=== PATIENT | female | born 1990 | race African-American/Black ===

== ENCOUNTER 2018-09-19 17:29 | Emergency (ER) | payer OTHER ==
[~2018-09-19] VITALS: Ht 157.5 cm; Wt 55.3 kg
[~2018-09-19 17:29] MED LIST: AMOX1TAB61 PO; AMOX500C PO; PRED20TA PO; PROAIR HFA8.5 GM INH
[2018-09-19 17:53] LABS: BILIRUBIN,URINE NEGATIVE (NEG); CLARITY,URINE CLEAR; COLOR,URINE YELLOW; NITRITE,URINE NEGATIVE (NEG); PROTEIN,URINE NEGATIVE (NEG-TRACE)
[2018-09-19] MEDS: ACETAMINOPHEN 500 MG TABLET PO ONE (18:00)
[2018-09-19 18:03] LABS: BACTERIA,URINE FEW /HPF (0-FEW); RBC,URINE RARE /HPF (0-2); SQUAMOUS EPITHELIAL CELL,UR FEW /LPF; WBC,URINE RARE /HPF (0-4)
--- NOTE | 2018-09-19 18:22 | PHYS DOC ---
Past Medical History Past Medical History: No Pertinent History Additional Past Medical Histor: seasonal allergies Past Surgical History: No Surgical History Alcohol Use: Occasionally Drug Use: None Adult General Chief Complaint Chief Complaint: ABDOMINAL PAIN IN [facility] HPI Patient is a 28 year old female who presents with 13 weeks last anicteric started having sharp left-sided abdominal pain. She denies dysuria. She did have a bowel movement this morning states that was small and hard. Patient states she has no vaginal bleeding or abnormal discharge. She has nausea but no vomiting. Patient states she also has slight headache. Patient states she doesn't take any medications except vitamins and she started to take anything that she is . Patient states that nothing relieves the pain. She is no known drug allergies and only takes vitamins. She has 2 other children delivered vaginal and but no common patients. Review of Systems Review of Systems Constitutional: Denies fever or chills [] Eyes: Denies change in visual acuity, redness, or eye pain [] HENT: Denies nasal congestion or sore throat [] Respiratory: Denies cough or shortness of breath [] Cardiovascular: No additional information not addressed in HPI [] GI: Left upper, lower and mid lower abdominal pain, nausea. Constipation. Denies vomiting, bloody stools or diarrhea [] : Denies dysuria or hematuria [] Musculoskeletal: Denies back pain or joint pain [] Integument: Denies rash or skin lesions [] Neurologic: Headache, focal weakness or sensory changes [] All other systems were reviewed and found to be within normal limits, except as documented in this note. Current Medications Current Medications Current Medications Medications (Trade) Dose Ordered Sig/[facility] Start Time Stop Time Status Last Admin Dose Admin Acetaminophen (Tylenol) 500 mg 1X ONCE 09/19/18 18:00 09/19/18 18:02 DC 09/19/18 18:00 500 MG Allergies Allergies Allergies Coded Allergies Type Severity Reaction Last Updated Verified No Known Drug Allergies 07/12/16 No Physical Exam Physical Exam Constitutional: Well developed, well nourished, no acute distress, non-toxic appearance. [] HENT: Normocephalic, atraumatic, bilateral external ears normal, oropharynx moist, no oral exudates, nose normal. [] Eyes: PERRLA, EOMI, conjunctiva normal, no discharge. [] Neck: Normal range of motion, no tenderness, supple, no stridor. [] Cardiovascular:Heart rate regular rhythm, no murmur [] Lungs & Thorax: Bilateral breath sounds clear to auscultation [] Abdomen: Bowel sounds normal, soft, Left upper, lower, and mid lower tenderness , no masses, no pulsatile masses. [] Skin: Warm, dry, no erythema, no rash. [] Back: No tenderness, no CVA tenderness. [] Extremities: No tenderness, no cyanosis, no clubbing, ROM intact, no edema. [] Neurologic: Alert and oriented X 3, normal motor function, normal sensory function, no focal deficits noted. [] Psychologic: Affect normal, judgement normal, mood normal. [] Current Patient Data Vital Signs Vital Signs Date Time Temp Pulse Resp B/P (MAP) Pulse Ox O2 Delivery O2 Flow Rate FiO2 09/19/18 18:43 70 18 103/58 (73) 100 09/19/18 17:45 98.5 Room Air 98.5 Lab Values Laboratory Tests Test 09/19/18 17:45 09/19/18 18:20 Urine Collection Type Unknown Urine Color Yellow Urine Clarity Clear Urine pH 7.0 Urine Specific [place] 1.020 Urine Protein Negative mg/dL (NEG-TRACE) Urine Glucose (UA) Negative mg/dL (NEG) Urine Ketones (Stick) Negative mg/dL (NEG) Urine Blood Small (NEG) Urine Nitrite Negative (NEG) Urine Bilirubin Negative (NEG) Urine Urobilinogen Dipstick 1.0 mg/dL (0.2 mg/dL) Urine Leukocyte Esterase Negative (NEG) Urine RBC Rare /HPF (0-2) Urine WBC Rare /HPF (0-4) Urine Squamous Epithelial Cells Few /LPF Urine Bacteria Few /HPF (0-FEW) Urine Mucus Mod /LPF POC Urine HCG, Qualitative Hcg positive (Negative) White Blood Count 7.9 x10^3/uL (4.0-11.0) Red Blood Count 3.56 x10^6/uL (3.50-5.40) Hemoglobin 11.6 g/dL (12.0-15.5) L Hematocrit 33.3 % (36.0-47.0) L Mean Corpuscular Volume 93 fL (79-100) Mean Corpuscular Hemoglobin 33 pg (25-35) Mean Corpuscular Hemoglobin Concent 35 g/dL (31-37) Red Cell Distribution Width 13.6 % (11.5-14.5) Platelet Count 235 x10^3/uL (140-400) Neutrophils (%) (Auto) 68 % (31-73) Lymphocytes (%) (Auto) 22 % (24-48) L Monocytes (%) (Auto) 8 % (0-9) Eosinophils (%) (Auto) 2 % (0-3) Basophils (%) (Auto) 0 % (0-3) Neutrophils # (Auto) 5.4 x10^3uL (1.8-7.7) Lymphocytes # (Auto) 1.8 x10^3/uL (1.0-4.8) Monocytes # (Auto) 0.6 x10^3/uL (0.0-1.1) Eosinophils # (Auto) 0.1 x10^3/uL (0.0-0.7) Basophils # (Auto) 0.0 x10^3/uL (0.0-0.2) Maternal Serum HCG Beta Subunit 24055 mIU/mL (0-5) H Sodium Level 136 mmol/L (136-145) Potassium Level 3.7 mmol/L (3.5-5.1) Chloride Level 100 mmol/L (98-107) Carbon Dioxide Level 28 mmol/L (21-32) Anion Gap 8 (6-14) Blood Urea Nitrogen 7 mg/dL (7-20) Creatinine 0.7 mg/dL (0.6-1.0) Estimated GFR (Cockcroft-Gault) 118.9 Glucose Level 110 mg/dL (70-99) H Calcium Level 9.7 mg/dL (8.5-10.1) Lipase 114 U/L (73-393) Laboratory Tests 09/19/18 18:20 Laboratory Tests 09/19/18 18:20 EKG EKG [] Radiology/Procedures Radiology/Procedures OB US Impressions: [address] [place] [address] IMAGING REPORT Signed PATIENT: CARTER KHAN ACCOUNT: [id number] : 1990 LOCATION: ER AGE: 28 SEX: F EXAM STATUS: REG ER ORD. PHYSICIAN: BRIDGET FLOWERS APRN REASON: LOWER ABDOMINAL PAIN PROCEDURE: PREG 1ST TRIMESTER Exam performed: OB sonogram second trimester. Indication: Patient car broke down and she had to push it today, complaining of pelvic pain since then. Date of Service: 09/19/2018 Comparison: None available. Technique: Transabdominal . Findings: Single intrauterine fetus is seen in cephalic presentation. The maturity is as follows. BPD 2.37 cm 14 weeks and 0 days Head circumference 9.25 cm 14 weeks and 1 day Abdominal circumference 8.26 cm 14 weeks and 4 days Femur length 1.29 cm 13 weeks and 6 days HC to AC ratio is 1.12 Estimated weight could not be calculated. The composite maturity is 14 weeks and 1 days with a sonographic EDC of 03/19/2019 There is adequate amniotic fluid volume . heart rate measures 155 beats per minute. Normal movement and cardiac activity seen. anatomy cannot be evaluated due to early gestation Placenta is anterior. Impression: Single live intrauterine fetus in cephalic presentation of maturity 14 weeks and 1 day. Electronically signed by: Collette Fernandez MD (09/19/2018 7:35 PM) [employer] DICTATED and SIGNED BY: COLLETTE FERNANDEZ MD DATE: 09/19/181928 Course & Med Decision Making Course & Med Decision Making Patient is a 28 year old female who presents with 13 weeks last anicteric started having sharp left-sided abdominal pain. She denies dysuria. She did have a bowel movement this morning states that was small and hard. Patient states she has no vaginal bleeding or abnormal discharge. She has nausea but no vomiting. Patient states she also has slight headache. Patient states she doesn't take any medications except vitamins and she started to take anything that she is . Patient states that nothing relieves the pain. She is no known drug allergies and only takes vitamins. She has 2 other children delivered vaginal and but no common patients. Alert and oriented. Skin is pink warm and dry. Patient rates the pain about 7 out of 10. Patient states that she will take some Tylenol here in the ED for pain. Abdomen is tender in the left lower and mid lower quadrant but she also states that there is some tenderness into her left upper quadrant. Patient states her next OB appointment is in [address] Vasquez. Patient has no extremity swelling. Vital signs are within normal limits. Neurologically intact. Patient's blood work is unremarkable. OB US show Single live intrauterine fetus in cephalic presentation of maturity 14 weeks and 1 day and a heart rate of 155. Her urinalysis slight infection with wbc's, rbc's and leukocytes. Patient will be treated with Macrobid for a UTI. Patient will be discharged home with a UTI and a prescription for Macrobid and Colace for constipation. Patient should follow up with her OB doctor soon as possible and is stable and in no distress. Dragon Disclaimer Dragon Disclaimer This electronic medical record was generated, in whole or in part, using a voice recognition dictation system. Departure Departure Impression: Primary Impression: Urinary tract infection Disposition: 01 HOME, SELF-CARE Condition: STABLE Referrals: NO PCP (PCP) Patient Instructions: - Urinary Tract Infection Additional Instructions: Follow up with your OB doctor as soon as possible. Take medications as prescribed. Scripts Docusate Sodium (COLACE) 100 Mg Capsule 1 CAP PO DAILY, #30 CAP Prov: BRIDGET FLOWERS APRN 09/19/18 Nitrofurantoin Monohyd/M-Cryst (MACROBID 100 MG CAPSULE) 100 Mg Capsule 1 CAP PO BID, #14 CAP Prov: BRIDGET FLOWERS APRN 09/19/18 Problem Qualifiers Primary Impression: Urinary tract infection Urinary tract infection type: site unspecified Hematuria presence: with hematuria Qualified Codes: N39.0 - Urinary tract infection, site not specified ; R31.9 - Hematuria, unspecified BRIDGET FLOWERS APRN Sep 19, 2018 18:21
[2018-09-19 18:32] LABS: BASO % 0 % (0-3); EOS # 0.1 x10^3/uL (0.0-0.7); EOS % 2 % (0-3); HEMATOCRIT 33.3 % (36.0-47.0); HEMOGLOBIN 11.6 g/dL (12.0-15.5); LYMPH # 1.8 x10^3/uL (1.0-4.8); LYMPH % 22 % (24-48); MEAN CORPUSCULAR HEMOGLOBIN 33 pg (25-35); MEAN CORPUSCULAR HGB CONC 35 g/dL (31-37); MEAN CORPUSCULAR VOLUME 93 fL (79-100); MONO # 0.6 x10^3/uL (0.0-1.1); MONO % 8 % (0-9); NEUT # 5.4 x10^3uL (1.8-7.7); NEUT % 68 % (31-73); PLATELET COUNT 235 x10^3/uL (140-400); RED BLOOD COUNT 3.56 x10^6/uL (3.50-5.40); RED CELL DISTRIBUTION WIDTH 13.6 % (11.5-14.5); WHITE BLOOD COUNT 7.9 x10^3/uL (4.0-11.0)
[2018-09-19 18:42] LABS: CALCIUM 9.7 mg/dL (8.5-10.1); CREATININE 0.7 mg/dL (0.6-1.0); GFR 118.9; POTASSIUM 3.7 mmol/L (3.5-5.1)
[2018-09-19] MEDS ORDERED: NITR100C62 PO (18:54)
[2018-09-19] MEDS ORDERED: DOCU-109 PO (18:54)
--- NOTE | 2018-09-19 19:38 | RAD ---
Exam performed: OB sonogram second trimester. Indication: Patient car broke down and she had to push it today, complaining of pelvic pain since then. Date of Service: 09/19/2018 Comparison: None available. Technique: Transabdominal . Findings: Single intrauterine fetus is seen in cephalic presentation. The maturity is as follows. BPD 2.37 cm 14 weeks and 0 days Head circumference 9.25 cm 14 weeks and 1 day Abdominal circumference 8.26 cm 14 weeks and 4 days Femur length 1.29 cm 13 weeks and 6 days HC to AC ratio is 1.12 Estimated weight could not be calculated. The composite maturity is 14 weeks and 1 days with a sonographic EDC of 03/19/2019 There is adequate amniotic fluid volume . heart rate measures 155 beats per minute. Normal movement and cardiac activity seen. anatomy cannot be evaluated due to early gestation Placenta is anterior. Impression: Single live intrauterine fetus in cephalic presentation of maturity 14 weeks and 1 day. Electronically signed by: Collette Fernandez MD (09/19/2018 7:35 PM) [facility]
[2018-09-19 19:46] VITALS: BP 103/62
== END 2018-09-19 19:50 | disposition home or self-care (01) ==
LOC: ER 17:29
DX: O23.42 Unspecified infection of urinary tract in pregnancy, second trimester (principal); R51 Headache; R11.0 Nausea; R10.12 Left upper quadrant pain; Z3A.14 14 weeks gestation of pregnancy
CPT/HCPCS: 36415; 76801; 80048; 81001; 81025; 83690; 84702; 85025; 99285-25

== ENCOUNTER 2018-12-09 16:18 | Emergency (ER) | payer OTHER ==
[~2018-12-09] VITALS: Ht 157.5 cm; Wt 61.7 kg
[~2018-12-09 16:18] MED LIST changes: +ALBU2.5V8 INH; +DOCU-109 PO; +NITR100C62 PO; -PROAIR HFA8.5 GM INH
[2018-12-09 16:27] VITALS: BP 118/61
[2018-12-09] MEDS ORDERED: diphenhydrAMINE HCL 25 MG CAPSULE PO ONE (16:45)
[2018-12-09] MEDS ORDERED: AZIT250T6 PO (16:46)
--- NOTE | 2018-12-09 16:46 | PHYS DOC ---
Past Medical History Past Medical History: No Pertinent History Additional Past Medical Histor: seasonal allergies Past Surgical History: No Surgical History Additional Information: "ON OCCASION" Alcohol Use: Occasionally Drug Use: None Adult General Chief Complaint Chief Complaint: HEADACHE HPI HPI Patient is a 28 year old female who presents with 25 weeks and has sinus pain and nasal congestion for 1 week. Patient states she does have some body aches but thinks it is more related. Alert and oriented. Vital signs within normal limits. She states she is only been taking Tylenol. Review of Systems Review of Systems Constitutional: Denies fever or chills [] Eyes: Denies change in visual acuity, redness, or eye pain [] HENT: Denies nasal congestion or sore throat [] Respiratory: Denies cough or shortness of breath [] Cardiovascular: No additional information not addressed in HPI [] GI: Denies abdominal pain, nausea, vomiting, bloody stools or diarrhea [] : Denies dysuria or hematuria [] Musculoskeletal: Denies back pain or joint pain [] Integument: Denies rash or skin lesions [] Neurologic: Denies headache, focal weakness or sensory changes [] Endocrine: Denies polyuria or polydipsia [] All other systems were reviewed and found to be within normal limits, except as documented in this note. Allergies Allergies Allergies Coded Allergies Type Severity Reaction Last Updated Verified No Known Drug Allergies 07/12/16 No Physical Exam Physical Exam Constitutional: Well developed, well nourished, no acute distress, non-toxic appearance. [] HENT: Normocephalic, atraumatic, bilateral external ears normal, oropharynx moist, no oral exudates, nose normal. [] Eyes: PERRLA, EOMI, conjunctiva normal, no discharge. [] Neck: Normal range of motion, no tenderness, supple, no stridor. [] Cardiovascular:Heart rate regular rhythm, no murmur [] Lungs & Thorax: Bilateral breath sounds clear to auscultation [] Abdomen: Bowel sounds normal, soft, no tenderness, no masses, no pulsatile masses. [] Skin: Warm, dry, no erythema, no rash. [] Back: No tenderness, no CVA tenderness. [] Extremities: No tenderness, no cyanosis, no clubbing, ROM intact, no edema. [] Neurologic: Alert and oriented X 3, normal motor function, normal sensory function, no focal deficits noted. [] Psychologic: Affect normal, judgement normal, mood normal. [] Current Patient Data Vital Signs Vital Signs Date Time Temp Pulse Resp B/P (MAP) Pulse Ox O2 Delivery O2 Flow Rate FiO2 12/09/18 16:27 98.4 93 20 118/61 (80) 99 98.4 EKG EKG [] Radiology/Procedures Radiology/Procedures [] Course & Med Decision Making Course & Med Decision Making Patient is a 28 year old female who presents with 25 weeks and has sinus pain and nasal congestion for 1 week. Patient states she does have some body aches but thinks it is more related. Alert and oriented. Vital signs within normal limits. She states she is only been taking Tylenol. Because membranes pink and moist. Patient denies abdominal pain, nausea, vaginal bleeding, vaginal discharge, Vomiting, diarrhea, sore throat. Throat is pink and without exudates. Patient does have sinus tenderness with palpation. Bilateral ear tympanic or reddened tender with examination. Lungs are clear to auscultation all lobes. Vital signs are within normal limits. Afebrile. Patient is told to continue taking Tylenol and start taking Benadryl. The patient that she also use nasal sprays. Patient be put on azithromycin for sinusitis. Patient follow-up with her marine insulator the next 3-4 days. Patient's marine insulator is Dr. Espinosa. Judd Disclaimer Judd Disclaimer This electronic medical record was generated, in whole or in part, using a voice recognition dictation system. Departure Departure Impression: Primary Impression: Otitis media Additional Impression: Sinusitis Disposition: 01 HOME, SELF-CARE Condition: STABLE Referrals: NO PCP (PCP) Patient Instructions: Otitis Media, Adult, Sinus Headache, Sinusitis Additional Instructions: Follow-up with Dr. Espinosa in the next 3-4 days. Take medications as prescribed. Also try using a vaporizer, nasal sprays and Benadryl. Scripts Azithromycin (AZITHROMYCIN TABLET) 250 Mg Tablet 1 PKG PO UD, #6 TAB Prov: BRIDGET FLOWERS MELTING OPERATOR 12/09/18 Problem Qualifiers Primary Impression: Otitis media Otitis media type: unspecified Laterality: bilateral Qualified Codes: H66.93 - Otitis media, unspecified, bilateral Additional Impression: Sinusitis Sinusitis location: unspecified location Chronicity: unspecified Qualified Codes: J32.9 - Chronic sinusitis, unspecified BRIDGET FLOWERS APRN Dec 09, 2018 16:46
[2018-12-09 17:14] LABS: INFLUENZA A PATIENT NEGATIVE (NEGATIVE); INFLUENZA B PATIENT NEGATIVE (NEGATIVE)
[2019-04-30] MEDS ORDERED: AMOX1TAB61 PO (01:07)
== END 2018-12-09 17:33 | disposition home or self-care (01) ==
LOC: ER 16:18
DX: O99.512 Diseases of the respiratory system complicating pregnancy, second trimester (principal); J32.9 Chronic sinusitis, unspecified; H66.93 Otitis media, unspecified, bilateral; M79.18 Myalgia, other site; Z3A.25 25 weeks gestation of pregnancy
CPT/HCPCS: 87804; 99283; Q0163

== ENCOUNTER 2019-01-20 23:24 | Observation (INO) | payer OTHER ==
[~2019-01-20 23:24] MED LIST changes: +AZIT250T6 PO
[2019-01-20] MEDS ORDERED: IV RINGERS,LACTATED 1000ML 1,000 ML IV SCH (23:30)
[2019-01-20 23:46] LABS: BILIRUBIN,URINE NEGATIVE (NEG); CLARITY,URINE CLEAR; COLOR,URINE YELLOW; NITRITE,URINE NEGATIVE (NEG); PROTEIN,URINE NEGATIVE (NEG-TRACE)
[2019-01-20 23:54] LABS: BACTERIA,URINE FEW /HPF (0-FEW); BARBITURATES NEG (NEG); BENZODIAZEPINES NEG (NEG); CANNABINOIDS NEG (NEG); COCAINE NEG (NEG); METHADONE NEG (NEG); OPIATES NEG (NEG); PHENCYCLIDINE NEG (NEG); RBC,URINE OCC /HPF (0-2); SQUAMOUS EPITHELIAL CELL,UR FEW /LPF; WBC,URINE 0 /HPF (0-4)
[2019-01-20 23:55] LABS: AMPHETAMINE/METHAMPHETAMINE NEG (NEG)
[2019-01-21] MEDS ORDERED: ACETAMINOPHEN 500 MG TABLET PO ONE (00:15)
[2019-01-21] MEDS ORDERED: hydrOXYzine PAMOATE 25 MG CAPSULE PO PRN (00:15)
== END 2019-01-21 01:20 | disposition home or self-care (01) ==
LOC: 3 SO LND 23:24
PROVIDERS: ADMIT Obstetrics & Gynecology; ATTEND Obstetrics & Gynecology
DX: O62.9 Abnormality of forces of labor, unspecified (principal); O26.893 Other specified pregnancy related conditions, third trimester; M54.9 Dorsalgia, unspecified; Z3A.31 31 weeks gestation of pregnancy
CPT/HCPCS: 80307; 81001; G0378; G0379; Q0177

== ENCOUNTER 2019-03-01 17:47 | Inpatient (IN) | payer OTHER ==
[~2019-03-01] VITALS: Ht 160 cm; Wt 61.2 kg
[2019-03-01] MEDS ORDERED: IV RINGERS,LACTATED 1000ML 1,000 ML IV PRN (18:45)
[2019-03-01 18:48] LABS: BILIRUBIN,URINE NEGATIVE (NEG); CLARITY,URINE CLEAR; COLOR,URINE YELLOW; NITRITE,URINE NEGATIVE (NEG); PH,URINE 7.5; PROTEIN,URINE NEGATIVE (NEG-TRACE)
[2019-03-01 18:56] LABS: BACTERIA,URINE FEW /HPF (0-FEW); RBC,URINE 0 /HPF (0-2); SQUAMOUS EPITHELIAL CELL,UR FEW /LPF; WBC,URINE OCC /HPF (0-4)
[2019-03-01 19:19] LABS: AMPHETAMINE/METHAMPHETAMINE NEG (NEG); BARBITURATES NEG (NEG); BENZODIAZEPINES NEG (NEG); CANNABINOIDS NEG (NEG); COCAINE NEG (NEG); METHADONE NEG (NEG); OPIATES NEG (NEG); PHENCYCLIDINE NEG (NEG)
[2019-03-01] MEDS ORDERED: IV RINGERS,LACTATED 1000ML 1,000 ML IV SCH ×2 (19:40→22:38)
[2019-03-01] MEDS ORDERED: fentaNYL PF VIAL 100 MCG/2 ML VIAL IV PRN (19:45)
[2019-03-01] MEDS ORDERED: TERBUTALINE 1 MG/ML VIAL. SQ PRN (19:45)
[2019-03-01] MEDS ORDERED: 0.9 % SODIUM CHLORIDE 10 ML DISP.SYRIN. IV PRN (19:45)
[2019-03-01] MEDS ORDERED: BUTORPHANOL 2 MG/ML VIAL. IV PRN (19:45)
[2019-03-01] MEDS ORDERED: ONDANSETRON PF 4 MG/2 ML VIAL. IV PRN ×2 (19:45→22:45)
[2019-03-01] MEDS ORDERED: ACETAMINOPHEN 325 MG TABLET. PO PRN (19:45)
[2019-03-01] MEDS ORDERED: LIDOCAINE 1% PF 30 ML VIAL. INJ PRN (19:45)
[2019-03-01] MEDS ORDERED: OXYTOCIN 30 UNIT/500 ML PREMIX 500 ML IV PRN ×2 (19:45)
[2019-03-01] MEDS ORDERED: IBUPROFEN 400 MG TABLET. PO PRN (19:45)
[2019-03-01 19:50] VITALS: BP 106/60
[2019-03-01] MEDS ORDERED: AMPICILLIN SODIUM 2 GM in IV NORMAL SALINE 100ML 100 ML IV ONE (20:00)
[2019-03-01 20:49] LABS: BASO % 0 % (0-3); EOS % 0 % (0-3); HEMATOCRIT 27.2 % (36.0-47.0); HEMOGLOBIN 9.1 g/dL (12.0-15.5); LYMPH # 1.4 x10^3/uL (1.0-4.8); LYMPH % 13 % (24-48); MEAN CORPUSCULAR HEMOGLOBIN 30 pg (25-35); MEAN CORPUSCULAR HGB CONC 33 g/dL (31-37); MEAN CORPUSCULAR VOLUME 90 fL (79-100); MONO % 9 % (0-9); NEUT # 8.1 x10^3uL (1.8-7.7); NEUT % 77 % (31-73); PLATELET COUNT 254 x10^3/uL (140-400); RED BLOOD COUNT 3.02 x10^6/uL (3.50-5.40); RED CELL DISTRIBUTION WIDTH 13.6 % (11.5-14.5); WHITE BLOOD COUNT 10.5 x10^3/uL (4.0-11.0)
[2019-03-01] MEDS ORDERED: OXYTOCIN PREMIX 30 UNIT/500 ML BAG. IV ONE (21:00)
[2019-03-01] MEDS ORDERED: L&D EPIDURAL 50 ML SYRINGE. ONE (21:00)
[2019-03-01] MEDS ORDERED: BUPIVACAINE MPF 0.25% 30 ML VIAL. ONE (21:10)
[2019-03-01] MEDS ORDERED: L&D EPIDURAL SYRINGE 50 ML ONE (21:10)
[2019-03-01] MEDS ORDERED: NALOXONE 0.4 MG/ML VIAL. IV PRN (22:45)
[2019-03-01] MEDS ORDERED: L&D EPIDURAL SYRINGE 50 ML EPID PRN (22:45)
[2019-03-01] MEDS ORDERED: IV RINGERS,LACTATED 500ML 500 ML IV PRN (22:45)
[2019-03-01] MEDS ORDERED: PROCHLORPERAZINE 10 MG/2 ML VIAL. IV PRN (22:45)
[2019-03-01] MEDS ORDERED: ePHEDrine PF IN SALINE 50 MG/10 ML SYRINGE. IV PRN (22:45)
[2019-03-01] MEDS ORDERED: ROPIVacaine 0.2% IN 0.9%NACL PF 40 MG/20 ML DISP.SYRIN. EPID PRN (22:45)
[2019-03-01] MEDS ORDERED: fentaNYL PF VIAL 100 MCG/2 ML VIAL EPI PRN (22:45)
[2019-03-01] MEDS ORDERED: diphenhydrAMINE 50 MG/ML VIAL IV PRN (22:45)
[2019-03-01] MEDS ORDERED: BUPIVACAINE MPF 0.25% 30 ML VIAL. EPID PRN (22:45)
[2019-03-01] MEDS ORDERED: NALBUPHINE 10 MG/ML AMPUL. IV PRN (22:45)
[2019-03-01] MEDS ORDERED: ATROPINE 0.5 MG/5 ML DISP.SYRINGE. IV PRN (22:45)
[2019-03-01] MEDS ORDERED: PHENYLEPHRINE in 0.9% NACL PF 1 MG/10 ML SYRINGE. IV PRN (22:45)
[2019-03-02] MEDS ORDERED: AMPICILLIN SODIUM 1 GM in IV NORMAL SALINE 50ML 50 ML IV SCH ×2
--- NOTE | 2019-03-02 00:11 | PDOC ---
VAGINAL DELIVERY DATE DATE: 03/02/19 TIME: 00:09 Para: 2 VAGINAL DELIVERY: VTX VACCUM ASSISTED: No MAXIMUM PRESSURE PLACENTA: Spontaneous SEX: Female WEIGHT Weight [ ] Nuchal Cord: No Amniotic Fluid: Clear PAIN: Epidural EPISIOTOMY: No EXTENSION: No EBL 300cc COMPLICATIONS None CONDITION Stable Signs of Intrauterine Infectio: None Shoulder Dystocia: No DIAGNOSIS XOCHITL Keller MD Mar 02, 2019 00:11
[2019-03-02] MEDS ORDERED: MAG HYDROX/ALUMINUM HYD/SIMETH 30 ML ORAL.SUSP PO PRN (00:15)
[2019-03-02] MEDS ORDERED: BENZOCAINE 20% TOPICAL AEROSOL SPRAY 57GM CAN. TP PRN (00:15)
[2019-03-02] MEDS ORDERED: 0.9 % SODIUM CHLORIDE 10 ML DISP.SYRIN. IV PRN (00:15)
[2019-03-02] MEDS ORDERED: ZOLPIDEM 5 MG TABLET. PO PRN (00:15)
[2019-03-02] MEDS ORDERED: PHENYLEPH/MINERAL OIL/PETROLAT RECTAL OINTMENT 28GM TUBE. RC PRN (00:15)
[2019-03-02] MEDS ORDERED: diphenhydrAMINE HCL 25 MG CAPSULE PO PRN (00:15)
[2019-03-02] MEDS ORDERED: MAGNESIUM HYDROXIDE 2,400 MG/30 ML ORAL.SUSP. PO PRN (00:15)
[2019-03-02] MEDS ORDERED: OXYTOCIN 30 UNIT/500 ML PREMIX 500 ML IV PRN (00:15)
[2019-03-02] MEDS ORDERED: HYDROCORTISONE 1% TOPICAL OINTMENT 30GM TUBE. TP PRN (00:15)
[2019-03-02] MEDS ORDERED: SIMETHICONE 80 MG TAB.CHEW PO PRN (00:15)
[2019-03-02] MEDS ORDERED: ACETAMINOPHEN 325 MG TABLET. PO PRN (00:15)
[2019-03-02] MEDS: IBUPROFEN 400 MG TABLET. PO PRN ×2 (02:48→13:31)
[2019-03-02 03:10] VITALS: BP 115/56
[2019-03-02 04:20] VITALS: BP 91/44
[2019-03-02] MEDS ORDERED: IBUPROFEN 400 MG TABLET. PO SCH (06:00)
[2019-03-02] MEDS: oxyCODONE/APAP 5/325 1 TAB TABLET PO PRN ×3 (06:11→18:44)
[2019-03-02 06:18] VITALS: BP 94/53
[2019-03-02] MEDS: FERROUS SULFATE 325 MG TABLET. PO SCH ×2 (09:34→17:45)
[2019-03-02 10:43] VITALS: BP 99/56
[2019-03-02 16:47] VITALS: BP 98/54
[2019-03-02 20:30] VITALS: BP 119/68
[2019-03-03] MEDS: IBUPROFEN 400 MG TABLET. PO PRN ×3 (00:29→22:52)
[2019-03-03] MEDS: oxyCODONE/APAP 5/325 1 TAB TABLET PO PRN ×2 (00:29→06:29)
[2019-03-03 05:18] VITALS: BP 101/64
[2019-03-03] MEDS ORDERED: BISACODYL 10 MG SUPP.RECT. PR PRN (10:00)
[2019-03-03] MEDS: FERROUS SULFATE 325 MG TABLET. PO SCH (10:17)
--- NOTE | 2019-03-03 15:35 | PDOC ---
Provider Note Provider Note Doing well VSS Uterus NTTP FU in AM XOCHITL MCLEOD MD Mar 03, 2019 15:35
[2019-03-03 23:05] VITALS: BP 122/76
[2019-03-04 05:30] VITALS: BP 103/66
[2019-03-04] MEDS: FERROUS SULFATE 325 MG TABLET. PO SCH (08:00)
--- NOTE | 2019-03-04 08:11 | PATHOLOGY ---
[facility] Accession Number: [id number] . 01 Material submitted: . placenta - PLACENTA AND CORD . 01 Clinical history: . GBS unknown, foul-smelling odor 37.4 week vaginal delivery weight 2615 g 8, 8, 9 EDC 03/19/2019 . 02 Diagnosis: 460 gram early term placenta of an estimated 37-38 weeks gestation with attached membranes and umbilical cord: - Acute chorioamnionitis, marked. - Acute funisitis. - Acute vasculitis of chorionic plate. - Septal cyst. (JPM:francine; 03/03/2019) MBR/03/04/2019 . 02 Electronically signed: . Lucius Gordon MD, Pathologist NPI- [id number] . 01 Gross description: . The specimen is received in formalin labeled "Noemi Patel, placenta" and consists of a circular thorpe placenta measuring 14.7 x 14.6 x 3.0 cm and weighing 460 g after removal of membranes and umbilical cord. The membranes are pink-cardozo, thin, and translucent. The surface is blue-whyte, glistening, and well vascularized with near centrally inserted 3 vessel umbilical cord, 4.6 from edge. The cord measures 33.0 by up to 1.7 cm and is white-cardozo, thickened, and partially edematous. The maternal surface shows complete and intact cotyledons with minimal adherent blood clot (less than 10 mL). Sectioning reveals a maroon-red and spongy parenchyma with scattered whyte-cardozo indurated areas (less than 5% of the parenchyma) and a single cystic structure measuring up to 1.2 cm. Shingle [employer] sections are submitted as follows: . A1: Periphery and membrane roll A2: Umbilical cord A3-A4: Full-thickness section A5: Cystic structure (SDY; 03/02/2019) SYU/SYU . 02 Pathologist provided ICD-10: O41.1230, O43.893, Z37.0, Z3A.37 . 02 CPT . 169078 Specimen Comment: A courtesy copy of this report has been sent to Specimen Comment: [phone]. Specimen Comment: Report sent to Performed at: 01 [facility] [address], [place] [id number] MD Jaron Pappas MD Phone: [phone] Performed at: 02 [facility] [address], [place] [id number] MD Lucius Gordon MD Phone: [phone]
--- NOTE | 2019-03-04 08:48 | PDOC3 ---
OB DISCHARGE SUMMARY DATE OF ADMISSION: 03/02/19 DATE OF DISCHARGE: 03/04/19 REASON FOR ADMISSION: Onset of labor INTRAPARTUM PROCEDURES: Spontanous Vag Deliv DISCHARGE DIAGNOSIS: Term Delivered DISCHARGE INFORMATION: Activity (ad ginette), Diet (regular), Instructions (pelvic rest x 6 wks) HOSPITAL COURSE Term gestation delivered vaginally without complications. TIAGO HOOD Jr, MD March 04, 2019 08:48
[2019-03-04] MEDS ORDERED: NAPR-514 PO (08:50)
[2019-03-04] MEDS ORDERED: DOCU-109 PO (08:50)
[2019-03-04] MEDS ORDERED: OXYC1TAB15 PO (08:50)
--- NOTE | 2019-03-04 08:51 | DISCH ---
DISCHARGE INSTRUCTIONS Condition on Discharge Condition on Discharge: Stable Activity After Discharge Activity Instructions for Disc: Activity as tolerated Lifting Instructions after Dis: No heavy lifting Driving Instructions after Dis: Do not drive today Diet after Discharge Diet after Discharge: Regular Contacting the DRjM after DC Call your doctor for: Concerns you may have Follow-Up Follow up with: Dr. Espinosa in 1 week. TIAGO HOOD Jr, MD March 04, 2019 08:50
[2019-03-04] MEDS: IBUPROFEN 400 MG TABLET. PO PRN (09:45)
[2019-03-04 11:14] VITALS: BP 106/72
[2019-03-04 17:00] VITALS: BP 110/68
== END 2019-03-04 17:59 | disposition home or self-care (01) | DRG 807 ==
LOC: OBSVTOIN 17:47 → 3 SO LND 17:47 → 3 NORTH 03-02 03:10
PROVIDERS: ADMIT Specialist; ATTEND Specialist
PROC: 10E0XZZ Delivery of Products of Conception, External Approach (ICD-10-PCS; principal; 2019-03-02)
PROC: 00HU33Z Insertion of Infusion Device into Spinal Canal, Percutaneous Approach (ICD-10-PCS; 2019-03-02)
PROC: 3E0R3BZ Introduction of Anesthetic Agent into Spinal Canal, Percutaneous Approach (ICD-10-PCS; 2019-03-02)
DX: O80 Encounter for full-term uncomplicated delivery (principal); Z37.0 Single live birth; Z3A.37 37 weeks gestation of pregnancy
CPT/HCPCS: 36415; 80307; 81001; 85014; 85025; 86592; 86850; 86900; 86901; 87086; 88307; G0378; J0290; J2405; J2590; J7120

== ENCOUNTER → 2019-04-30 | Emergency (ER) | payer MEDICAID, OTHER ==
[~2019-04-30] VITALS: Ht 157.5 cm; Wt 59.0 kg
[~2019-04-30] MED LIST changes: +AMOXICILLIN/K CLAV 875/125MG TABLET. PO ONE; +KETOROLAC 30 MG/ML VIAL. IM ONE; +NAPR-514 PO; +OXYC1TAB15 PO
[2019-04-30 00:38] VITALS: BP 133/79
--- NOTE | 2019-04-30 04:30 | PHYS DOC ---
Past Medical History Past Medical History: No Pertinent History Additional Past Medical Histor: seasonal allergies Past Surgical History: No Surgical History Alcohol Use: Occasionally Drug Use: None Adult General Chief Complaint Chief Complaint: DENTAL PROBLEM HPI HPI Patient is a 29 year old female presenting with dental pain tooth cracked right lower gum area pain increasing has appointment with dentist tomorrow just wanted something to help her through the night. She has an 8-week-old baby she is not breast-feeding Review of Systems Review of Systems C Current Medications Current Medications Current Medications Medications (Trade) Dose Ordered Sig/[facility] Start Time Stop Time Status Last Admin Dose Admin Amoxicillin/ Clavulanate Potassium (Augmentin 875/ 125mg) 1 tab 1X ONCE 04/30/19 01:15 04/30/19 01:16 DC 04/30/19 01:19 1 TAB Ketorolac Tromethamine (Toradol 30mg Vial) 30 mg 1X ONCE 04/30/19 01:15 04/30/19 01:16 DC 04/30/19 01:19 30 MG Allergies Allergies Allergies Coded Allergies Type Severity Reaction Last Updated Verified No Known Drug Allergies 07/12/16 No Physical Exam Physical Exam Constitutional: Well developed, well nourished, no acute distress, non-toxic appearance. [] HENT: Poor dentition with cracked tooth in the right lower mandible area no obvious abscess or facial tenderness or swelling is noted Eyes: PERRLA, EOMI, conjunctiva normal, no discharge. [] Extremities: No tenderness, no cyanosis, no clubbing, ROM intact, no edema. [] Neurologic: Alert and oriented X 3, normal motor function, normal sensory function, no focal deficits noted. [] Psychologic: Affect normal, judgement normal, mood normal. [] Current Patient Data Vital Signs Vital Signs Date Time Temp Pulse Resp B/P (MAP) Pulse Ox O2 Delivery O2 Flow Rate FiO2 04/30/19 00:38 98.2 74 16 133/79 (97) 99 Room Air 98.2 EKG EKG [] Radiology/Procedures Radiology/Procedures [] Course & Med Decision Making Course & Med Decision Making Pertinent Labs and Imaging studies reviewed. (See chart for details) 29-year-old female with a cracked tooth given appropriate treatment. As dentist appointment tomorrow Dragon Disclaimer Dragon Disclaimer This electronic medical record was generated, in whole or in part, using a voice recognition dictation system. Departure Departure Impression: Primary Impression: Pain, dental Disposition: HOME, SELF-CARE Condition: STABLE Referrals: NO PCP (PCP) Patient Instructions: Toothache-Brief Scripts Amoxicillin/Potassium Clav (AUGMENTIN 875-125 TABLET) 1 Each Tablet 1 TAB PO BID, #14 TAB Prov: LUIS NAZARIO MD 04/30/19 LUIS NAZARIO MD Apr 30, 2019 04:30
== END ==
LOC: ER 00:29
DX: K08.89 Other specified disorders of teeth and supporting structures (principal); K03.81 Cracked tooth
CPT/HCPCS: 96372; 99283; J1885

== ENCOUNTER 2019-05-16 08:05 | Emergency (ER) | payer MEDICAID ==
[2019-04-30 00:38] VITALS: BP 133/79
[~2019-05-16] VITALS: Ht 157.5 cm; Wt 56.7 kg
[~2019-05-16 08:05] MED LIST changes: -AMOXICILLIN/K CLAV 875/125MG TABLET. PO ONE; -KETOROLAC 30 MG/ML VIAL. IM ONE
[2019-05-16] MEDS ORDERED: HYDROcodone/APAP 5/325MG 1 TAB TABLET PO ONE (08:15)
[2019-05-16] MEDS ORDERED: IBUPROFEN 200 MG TABLET. PO ONE (08:15)
--- NOTE | 2019-05-16 08:20 | PHYS DOC ---
Past Medical History Past Medical History: No Pertinent History Additional Past Medical Histor: seasonal allergies Past Surgical History: No Surgical History Alcohol Use: Occasionally Drug Use: None Adult General Chief Complaint Chief Complaint: LOWER EXT PAIN HPI HPI Patient is a 29 year old female who presents with patient states this morning she was getting in the bed when she felt a pop in the dorsal part of her right knee. Patient states she now has extreme pain and cannot bear weight. She rates her sharp achy pain at a 10 out of 10. Review of Systems Review of Systems Constitutional: Denies fever or chills [] Eyes: Denies change in visual acuity, redness, or eye pain [] HENT: Denies nasal congestion or sore throat [] Respiratory: Denies cough or shortness of breath [] Cardiovascular: No additional information not addressed in HPI [] GI: Denies abdominal pain, nausea, vomiting, bloody stools or diarrhea [] : Denies dysuria or hematuria [] Musculoskeletal: Denies back pain. Right knee joint pain [] Integument: Denies rash or skin lesions [] Neurologic: Denies headache, focal weakness or sensory changes [] Endocrine: Denies polyuria or polydipsia [] All other systems were reviewed and found to be within normal limits, except as documented in this note. Current Medications Current Medications Current Medications Medications (Trade) Dose Ordered Sig/[facility] Start Time Stop Time Status Last Admin Dose Admin Acetaminophen/ Hydrocodone Bitart (Lortab 5/325) 1 tab 1X ONCE 05/16/19 08:15 05/16/19 08:17 DC 05/16/19 08:25 1 TAB Ibuprofen (Motrin) 600 mg 1X ONCE 05/16/19 08:15 05/16/19 08:17 DC 05/16/19 08:26 600 MG Allergies Allergies Allergies Coded Allergies Type Severity Reaction Last Updated Verified No Known Drug Allergies 07/12/16 No Physical Exam Physical Exam Constitutional: Well developed, well nourished, no acute distress, non-toxic appearance. [] HENT: Normocephalic, atraumatic, bilateral external ears normal, oropharynx moist, no oral exudates, nose normal. [] Eyes: PERRLA, EOMI, conjunctiva normal, no discharge. [] Neck: Normal range of motion, no tenderness, supple, no stridor. [] Cardiovascular:Heart rate regular rhythm, no murmur [] Lungs & Thorax: Bilateral breath sounds clear to auscultation [] Abdomen: Bowel sounds normal, soft, no tenderness, no masses, no pulsatile masses. [] Skin: Warm, dry, no erythema, no rash. [] Back: No tenderness, no CVA tenderness. [] Extremities: Right Dorsal patella tenderness, no cyanosis, no clubbing, ROM not intact due to pain, no edema. [] Neurologic: Alert and oriented X 3, normal motor function, normal sensory function, no focal deficits noted. [] Psychologic: Affect normal, judgement normal, mood normal. [] Current Patient Data Vital Signs Vital Signs Date Time Temp Pulse Resp B/P (MAP) Pulse Ox O2 Delivery O2 Flow Rate FiO2 05/16/19 08:13 98.4 89 20 103/58 (73) 99 Room Air 98.4 EKG EKG [] Radiology/Procedures Radiology/Procedures [] Impressions: [facility] [address] [place], [place] [id number] IMAGING REPORT Signed PATIENT: CARTER KHAN ACCOUNT: [id number] : 1990 LOCATION: ER AGE: 29 SEX: F EXAM STATUS: REG ER ORD. PHYSICIAN: BRIDGET FLOWERS APRN REASON: right knee pain after hearing pop this morning PROCEDURE: KNEE RIGHT 4V 4 view study of the right knee Clinical indications: Right knee pain after hearing a pop this morning. FINDINGS: The patella is normally aligned. No acute fracture or dislocation or lytic process is seen. IMPRESSION: No acute fracture. Electronically signed by: Skyla Tidwell MD (05/16/2019 8:41 AM) [facility] DICTATED and SIGNED BY: SKYLA TIDWELL MD DATE: 05/16/19 0841 Course & Med Decision Making Course & Med Decision Making Patient is a 29 year old female who presents with patient states this morning she was getting in the bed when she felt a pop in the dorsal part of her right knee. Patient states she now has extreme pain and cannot bear weight. She rates her sharp achy pain at a 10 out of 10. Patient has tenderness to the dorsal part of the knee on the patella bone itself. There is no swelling, bruising or deformity noted. Patella is intact and in place. Patient is more comfortable having leg extended and bending is very painful. Patient does have control over the knee but is very painful to bend the knee. No laxity to the joint. There is no lateral aspect or posterior knee pain. or tenderness. Skin is pink warm and dry. There is no swelling to the extremity. Pedal pulses present. Patient is not breast feeding and denies . Xray shows no acute fracture. With the amount of pain and the "popping" sound the patient heard a differential diagnosis is a possible tendon injury. Patient will be given crutches and a destiny wrap. Patient will be referred to Dr Marlow. Judd Disclaimer Judd Disclaimer This electronic medical record was generated, in whole or in part, using a voice recognition dictation system. Departure Departure Impression: Primary Impression: Knee pain Disposition: HOME, SELF-CARE Condition: STABLE Referrals: NO PCP (PCP) CINDY MARLOW MD Patient Instructions: Knee Pain Additional Instructions: Call Dr Marlow office Saturday morning. Ice and elevate the knee. Take medications for pain. [place] will make you sleepy. Scripts Ibuprofen (IBUPROFEN) 600 Mg Tablet 600 MG PO PRN Q6HRS PRN for INFLAMMATION, #20 TAB Prov: BRIDGET FLOWERS [employer] AUTHOR 05/16/19 Hydrocodone/Apap 5-325 (NORCO 5-325 TABLET) 1 Each Tablet 1 TAB PO PRN Q6HRS PRN for PAIN, #8 TAB 0 Refills Prov: BRIDGET FLOWERS APRN 05/16/19 Problem Qualifiers Primary Impression: Knee pain Chronicity: acute Laterality: right Qualified Codes: M25.561 - Pain in right knee BRIDGET FLOWERS [employer]IL[employer] AUTHOR May 16, 2019 08:20
--- NOTE | 2019-05-16 08:43 | RAD ---
4 view study of the right knee Clinical indications: Right knee pain after hearing a pop this morning. FINDINGS: The patella is normally aligned. No acute fracture or dislocation or lytic process is seen. IMPRESSION: No acute fracture. Electronically signed by: Wilfrido Tidwell MD (05/16/2019 8:41 AM) [facility]
[2019-05-16] MEDS ORDERED: HYDR-3164 PO (08:53)
[2019-05-16] MEDS ORDERED: IBUP-1007 PO (08:53)
== END 2019-05-16 09:03 | disposition home or self-care (01) ==
LOC: ER 08:05
DX: M25.561 Pain in right knee (principal); X50.9XXA Other and unspecified overexertion or strenuous movements or postures, initial encounter; Y93.89 Activity, other specified; Y92.89 Other specified places as the place of occurrence of the external cause; Y99.8 Other external cause status
CPT/HCPCS: 73564; 99284

== ENCOUNTER → 2019-06-03 | Outpatient (CLI) | payer MEDICAID ==
[2019-05-16 08:13] VITALS: BP 103/58
[~2019-06-03] MED LIST changes: +HYDR-3164 PO; +IBUP-1007 PO
--- NOTE | 2019-06-03 11:53 | KCIC ---
STUDY: MRI of the right knee without contrast INDICATION: Swelling. Internal derangement of the right knee. COMPARISON: None available. TECHNIQUE: Multiplanar MR imaging of the right knee performed without the use of intravenous or intra-articular contrast. FINDINGS: Menisci: No discrete tear of the medial or lateral menisci. Note is made of some increase offset between the medial meniscal body and the overlying MCL complex with some heterogeneous signal interposed between these two structures, reference image 13 series 7 and 8. This is favored related to overlying MCL injury, as detailed below, as opposed to representing meniscocapsular separation given the smooth margins of the medial meniscal body. Cruciate ligaments: Some increased signal seen within the mid to distal ACL though traversing intact fibers are identified. The PCL is intact. Collateral ligaments: Thickening and heterogeneity of the MCL from its femoral to mid aspect such as on image 13 series 7, suggestive of grade 1 sprain. The meniscofemoral portion of the deep MCL complex is heterogeneous but appears intact. No acute injury of the lateral collateral ligamentous structures. Tendons: The extensor tendon complex and additional tendons at the knee are intact. Cartilage: Patellofemoral: No high-grade chondral defect identified. Lateral compartment: Some chondral heterogeneity without focal defect at the posterior aspect of the lateral tibial plateau, image 16 series 5. Medial compartment: No focal defect. Bones: Patchy marrow edema at the posterior aspect of the lateral femoral condyle. No acute fracture. Miscellaneous: Mild edema at the superolateral aspect of Hoffa's fat, image 10 series 4. Mild subcutaneous edema at the anteromedial knee and extending along the pes anserine tendons. IMPRESSION: 1. Findings most compatible with grade 1 sprain of the MCL. There is some increased offset of the MCL with the medial meniscal body with some interposed heterogeneous signal which is favored reactive to the MCL injury as opposed to representing meniscocapsular separation, given the meniscal contours are smooth. 2. Some signal elevation within the ACL at its mid to distal aspect but with intact traversing fibers. 3. Mild marrow edema at the posterior aspect of the lateral femoral condyle of uncertain etiology but potentially from contusion. The adjacent lateral collateral ligamentous structures are intact. 4. Edema at the superolateral aspect of Hoffa's fat as can be seen with patellar tendon lateral femoral condyle friction syndrome. Electronically signed by: JUVENAL STEPHENS MD (06/03/2019 11:50 AM) [id number]
== END | disposition home or self-care (01) ==
LOC: KCIC MRI 07:38
PROVIDERS: ATTEND Orthopaedic Surgery
DX: S83.411A Sprain of medial collateral ligament of right knee, initial encounter (principal); S80.01XA Contusion of right knee, initial encounter; X58.XXXA Exposure to other specified factors, initial encounter; Y93.89 Activity, other specified; Y92.89 Other specified places as the place of occurrence of the external cause; Y99.8 Other external cause status
CPT/HCPCS: 73721

== ENCOUNTER 2019-11-27 13:01 | Emergency (ER) | payer MEDICAID ==
[~2019-11-27] VITALS: Ht 157.5 cm; Wt 50.0 kg
[2019-11-27 13:05] VITALS: BP 107/61
--- NOTE | 2019-11-27 13:49 | PHYS DOC ---
Past Medical History Past Medical History: No Pertinent History Additional Past Medical Histor: seasonal allergies Past Surgical History: No Surgical History Alcohol Use: Occasionally Drug Use: None Adult General Chief Complaint Chief Complaint: FLU SYMPTOM HPI HPI Patient is a 29 year old female who presents to the ED today complaining of a productive cough, body aches, chills, fevers, symptoms began 4 days ago. Patient reports she is currently 6 weeks G 4 para 3. Denies any abdominal pain, denies any vaginal bleeding. Review of Systems Review of Systems Constitutional: Reports body aches, fever, chills. Eyes: Denies change in visual acuity, redness, or eye pain [] HENT: Denies nasal congestion or sore throat [] Respiratory: Reports productive cough, denies shortness of breath [] Cardiovascular: No additional information not addressed in HPI [] GI: Reports . Denies abdominal pain, nausea, vomiting, bloody stools or diarrhea [] : Denies dysuria or hematuria [] Musculoskeletal: Denies back pain or joint pain [] Integument: Denies rash or skin lesions [] Neurologic: Denies headache, focal weakness or sensory changes [] All other systems were reviewed and found to be within normal limits, except as documented in this note. Allergies Allergies Allergies Coded Allergies Type Severity Reaction Last Updated Verified No Known Drug Allergies 07/12/16 No Physical Exam Physical Exam Constitutional: Well developed, well nourished, no acute distress, non-toxic appearance. [] HENT: Normocephalic, atraumatic, bilateral external ears normal, oropharynx moist, no oral exudates, nose normal. [] Eyes: PERRLA, EOMI, conjunctiva normal, no discharge. [] Neck: Normal range of motion, no tenderness, supple, no stridor. [] Cardiovascular:Heart rate regular rhythm, no murmur [] Lungs & Thorax: Bilateral breath sounds clear to auscultation [] Abdomen: Bowel sounds normal, soft, no tenderness, no masses, no pulsatile masses. [] Skin: Warm, dry, no erythema, no rash. [] Back: No tenderness, no CVA tenderness. [] Extremities: No tenderness, no cyanosis, no clubbing, ROM intact, no edema. [] Neurologic: Alert and oriented X 3, normal motor function, normal sensory function, no focal deficits noted. [] Psychologic: Affect normal, judgement normal, mood normal. [] Current Patient Data Vital Signs Vital Signs Date Time Temp Pulse Resp B/P (MAP) Pulse Ox O2 Delivery O2 Flow Rate FiO2 11/27/19 13:05 99.2 93 16 107/61 (76) 98 99.2 EKG EKG [] Radiology/Procedures Radiology/Procedures [] Course & Med Decision Making Course & Med Decision Making Pertinent Labs and Imaging studies reviewed. (See chart for details) This is a 29-year-old female patient currently 6 weeks 4 para 3 presenting with body aches, chills, cough, symptoms began 4 days ago. Patient denies any abdominal pain, vaginal bleeding. Patient is afebrile in the ED. Supportive care measures recommended for her viral-like symptoms. Encouraged her to follow up with an CUST[employer]ER [employer]PERIENCE INTERN and consider taking vitamins. Dragon Disclaimer Dragon Disclaimer This electronic medical record was generated, in whole or in part, using a voice recognition dictation system. Departure Departure Impression: Primary Impression: Upper respiratory infection Additional Impressions: Fever Cough Disposition: 01 HOME, SELF-CARE Condition: STABLE Referrals: NO PCP (PCP) follow up with your primary care doctor and OBGYN as soon as you can Patient Instructions: Cough, Adult, [id number], Upper Respiratory Infection, Adult, [id number] Additional Instructions: You were evaluated in the emergency room with symptoms consistent of a viral illness. Push fluids, rest, take Tylenol as needed for pain or fever. Follow-up with the primary care doctor in the next 1 week. Also consider following up with an CUSTOMER EXPERIENCE INTERN, consider using vitamins. Problem Qualifiers Primary Impression: Upper respiratory infection URI type: unspecified URI Qualified Codes: J06.9 - Acute upper respiratory infection, unspecified Additional Impressions: Fever Fever type: unspecified Qualified Codes: R50.9 - Fever, unspecified IMELDA PORTILLO [employer]IPMENT [employer] Nov 27, 2019 13:49
== END 2019-11-27 14:11 | disposition home or self-care (01) ==
LOC: ER 13:01
DX: O99.511 Diseases of the respiratory system complicating pregnancy, first trimester (principal); J06.9 Acute upper respiratory infection, unspecified; R50.9 Fever, unspecified; R05 Cough; J30.2 Other seasonal allergic rhinitis; Z3A.01 Less than 8 weeks gestation of pregnancy
CPT/HCPCS: 99281

== ENCOUNTER 2020-03-04 22:23 | Emergency (ER) | payer MEDICAID ==
[~2020-03-04] VITALS: Ht 157.5 cm; Wt 59.1 kg
--- NOTE | 2020-03-04 22:44 | PHYS DOC ---
Past Medical History Past Medical History: No Pertinent History Additional Past Medical Histor: seasonal allergies Past Surgical History: No Surgical History Smoking Status: Former Smoker Alcohol Use: Occasionally Drug Use: None General Adult EDM: Chief Complaint: FLU SYMPTOM HPI: HPI: Patient is a 30 year old female who presents with report of fever and body aches. Patient states that symptoms started earlier today. She states that the worst of the body aches as an both upper thighs and states that it feels like it's a continuous muscle spasm. She denies any chest pain or shortness of breath. She states that she did take 2 Tylenol at home before coming here but fever is not gone down. Patient denies any abdominal pain, nausea or vomiting. She is at 21 weeks at this time. She indicates that she is a A1.[] Review of Systems: Review of Systems: Constitutional: Positive fever and chills. [] Respiratory: Denies cough or shortness of breath. [] Cardiovascular: Denies chest pain or edema. [] GI: Denies abdominal pain, nausea, vomiting or diarrhea. [] : Denies dysuria. [] Musculoskeletal: Complains of mid back and bilateral thigh pain. [] Integument: Denies rash. [] Neurologic: Complains of mild headache without focal weakness or sensory changes. [] A full 10 point review of systems has been reviewed and is otherwise negative except as noted in history of present illness. Heart Score: Risk Factors: Risk Factors: DM, Current or recent (<one month) smoker, HTN, HLP, family history of CAD, obesity. Risk Scores: Score 0 - 3: 2.5% MACE over next 6 weeks - Discharge Home Score 4 - 6: 20.3% MACE over next 6 weeks - Admit for Clinical Observation Score 7 - 10: 72.7% MACE over next 6 weeks - Early Invasive Strategies Allergies: Allergies: Allergies Coded Allergies Type Severity Reaction Last Updated Verified No Known Drug Allergies 07/12/16 No Physical Exam: PE: Constitutional: Well developed, well nourished, no acute distress, non-toxic appearance. [] HENT: Normocephalic, atraumatic, bilateral external ears normal, oropharynx moist, no oral exudates, nose normal. [] Eyes: PERRLA, EOMI, conjunctiva normal, no discharge. [] Neck: Normal range of motion, no tenderness, supple, no stridor. [] Cardiovascular: Regular rate and rhythm[] Lungs & Thorax: Bilateral breath sounds clear to auscultation [] Abdomen: Bowel sounds normal, soft, gravid. [] Skin: Warm, dry, no erythema, no rash. [] Extremities: No tenderness, no cyanosis, no clubbing, ROM intact. [] Neurologic: Alert and oriented X 3, no focal deficits noted. [] EKG: EKG: [] Radiology/Procedures: Radiology/Procedures: [] Course & Med Decision Making: Course & Med Decision Making Pertinent Labs and Imaging studies reviewed. (See chart for details) [] Dragon Disclaimer: Dragon Disclaimer: This electronic medical record was generated, in whole or in part, using a voice recognition dictation system. COVID-19 Patient Risks: Age 65 or older: No Sign of co-morbidity: No Exp to person + for COVID: No Exp to PUI: No Travel from affected area: No Lower respiratory symptoms: No Fever: Yes Other: Yes PPE Use: Full PPE with N95 mask or PAPR: Yes Departure Departure Impression: Primary Impression: Upper respiratory infection Qualified Codes: J06.9 - Acute upper respiratory infection, unspecified Additional Impression: Suspected COVID-19 virus infection Disposition: HOME, SELF-CARE Condition: STABLE Referrals: NO PCP (PCP) Patient Instructions: Upper Respiratory Infection, Adult Scripts Azithromycin (ZITHROMAX) 250 Mg Tablet 1 PKG PO UD, #6 TAB Prov: CARA LYNN Jr. DO 03/05/20 CARA LYNN Jr. DO March 04, 2020 22:44
[2020-03-04] MEDS ORDERED: IV NORMAL SALINE 1000ML BAG 1,000 ML IV SCH (22:45)
[2020-03-04 22:57] LABS: BILIRUBIN,URINE NEGATIVE (NEG); CLARITY,URINE CLEAR; NITRITE,URINE NEGATIVE (NEG); PH,URINE 7.5 (<5.0-8.0); PROTEIN,URINE NEGATIVE (NEG-TRACE)
[2020-03-04 23:02] LABS: COLOR,URINE STRAW
[2020-03-04 23:05] LABS: BACTERIA,URINE MANY /HPF (0-FEW); RBC,URINE OCC /HPF (0-2); SQUAMOUS EPITHELIAL CELL,UR MANY /LPF
[2020-03-04 23:21] LABS: BASO % 0 % (0-3); EOS % 0 % (0-3); HEMATOCRIT 32.8 % (36.0-47.0); HEMOGLOBIN 11.5 g/dL (12.0-15.5); LYMPH # 0.3 x10^3/uL (1.0-4.8); LYMPH % 7 % (24-48); MEAN CORPUSCULAR HEMOGLOBIN 32 pg (25-35); MEAN CORPUSCULAR HGB CONC 35 g/dL (31-37); MEAN CORPUSCULAR VOLUME 93 fL (79-100); MONO # 0.4 x10^3/uL (0.0-1.1); MONO % 8 % (0-9); NEUT # 4.3 x10^3/uL (1.8-7.7); NEUT % 85 % (31-73); PLATELET COUNT 189 x10^3/uL (140-400); RED BLOOD COUNT 3.53 x10^6/uL (3.50-5.40); RED CELL DISTRIBUTION WIDTH 13.8 % (11.5-14.5)
[2020-03-04 23:28] LABS: CALCIUM 8.7 mg/dL (8.5-10.1); CREATININE 0.6 mg/dL (0.6-1.0); GFR 140.2; POTASSIUM 3.6 mmol/L (3.5-5.1)
[2020-03-04 23:33] LABS: ALBUMIN 2.7 g/dL (3.4-5.0); ALBUMIN/GLOBULIN RATIO 0.6 (1.0-1.7); TOTAL BILIRUBIN 0.2 mg/dL (0.2-1.0)
[2020-03-04 23:41] LABS: INFLUENZA A PATIENT NEGATIVE (NEGATIVE); INFLUENZA B PATIENT NEGATIVE (NEGATIVE)
[2020-03-04 23:43] LABS: % BANDS 17 % (0-9); % LYMPHS 6 % (24-48); % MONOS 4 % (0-10); % SEGS 73 % (35-66)
[2020-03-04 23:46] LABS: PLT ESTIMATE ADEQUATE (ADEQUATE); TOXIC GRANULATION SLIGHT
[2020-03-05] MEDS ORDERED: AZIT250T PO (01:26)
[2020-03-05 01:30] VITALS: BP 90/51
[2020-03-05] MEDS ORDERED: AZITHROMYCIN 250 MG TABLET. PO ONE (01:30)
== END 2020-03-05 01:45 | disposition home or self-care (01) ==
LOC: ER 22:23
DX: O99.512 Diseases of the respiratory system complicating pregnancy, second trimester (principal); J06.9 Acute upper respiratory infection, unspecified; Z03.818 Encounter for observation for suspected exposure to other biological agents ruled out; M79.651 Pain in right thigh; M79.652 Pain in left thigh; M54.6 Pain in thoracic spine; Z87.891 Personal history of nicotine dependence; Z3A.21 21 weeks gestation of pregnancy
CPT/HCPCS: 36415; 80053; 81001; 81025; 85007; 85025; 87040; 87070; 87086; 87635; 87804; 87880; 99285; J7030

== ENCOUNTER 2020-04-18 01:08 | Observation (INO) | payer MEDICAID ==
[~2020-04-18 01:08] MED LIST changes: +AZIT250T PO
[2020-04-18] MEDS ORDERED: IV RINGERS,LACTATED 1000ML 1,000 ML IV SCH (01:15)
[2020-04-18] MEDS ORDERED: MAG HYDROX/ALUMINUM HYD/SIMETH 30 ML ORAL.SUSP PO PRN (01:15)
[2020-04-18] MEDS ORDERED: ACETAMINOPHEN 325 MG TABLET. PO PRN (01:15)
[2020-04-18] MEDS ORDERED: ONDANSETRON PF 4 MG/2 ML VIAL. IVP PRN (01:15)
[2020-04-18 02:38] LABS: BILIRUBIN,URINE NEGATIVE (NEG); CLARITY,URINE CLEAR; COLOR,URINE YELLOW; NITRITE,URINE NEGATIVE (NEG); PH,URINE 7.5 (<5.0-8.0); PROTEIN,URINE NEGATIVE (NEG-TRACE); UROBILINOGEN,URINE 0.2 mg/dL (0.2 mg/dL)
[2020-04-18 02:45] LABS: BACTERIA,URINE FEW /HPF (0-FEW); RBC,URINE OCC /HPF (0-2)
[2020-04-18 02:46] LABS: BARBITURATES NEG (NEG); BENZODIAZEPINES NEG (NEG); CANNABINOIDS NEG (NEG); COCAINE NEG (NEG); METHADONE NEG (NEG); OPIATES NEG (NEG); PHENCYCLIDINE NEG (NEG); SQUAMOUS EPITHELIAL CELL,UR MOD /LPF
[2020-04-18 02:47] LABS: AMPHETAMINE/METHAMPHETAMINE NEG (NEG)
== END 2020-04-18 03:01 | disposition home or self-care (01) ==
LOC: 3 SO LND 01:08
PROVIDERS: ADMIT Obstetrics & Gynecology; ATTEND Obstetrics & Gynecology
DX: O26.899 Other specified pregnancy related conditions, unspecified trimester (principal); Z3A.00 Weeks of gestation of pregnancy not specified
CPT/HCPCS: 80307; 81001; G0378; G0379